=== PATIENT | female | born 1975 | race Caucasian/White ===

== ENCOUNTER → 2017-01-04 | Outpatient (CLI) | payer BC ==
[~2017-01-04] MED LIST: MOTRIN 600600 MG/TAB PO; PERCOCET 5/321 UDTAB PO; PRENATAL VITAMI1 TA5 PO
== END ==
LOC: MC.RAD 13:20
DX: Z12.31 Encounter for screening mammogram for malignant neoplasm of breast (principal)

== ENCOUNTER → 2018-01-29 | Outpatient (CLI) | payer BC | LOC: COL.RAD 08:15 | DX: N85.8 Other specified noninflammatory disorders of uterus (principal) ==

== ENCOUNTER → 2018-03-21 | Outpatient (CLI) | payer BC | LOC: MC.RAD 02-22 11:40 | DX: Z12.31 Encounter for screening mammogram for malignant neoplasm of breast (principal) ==

== ENCOUNTER → 2023-06-21 | Outpatient (CLI) | payer BC ==
[2006-02-17 08:00] VITALS: TEMP 98.6
== END ==
LOC: CANSCHCLI → MC.RAD 12:47
DX: Z12.31 Encounter for screening mammogram for malignant neoplasm of breast (principal)